=== PATIENT | male | born 1970 | race African-American/Black ===

== ENCOUNTER 2020-10-25 05:50 | Inpatient (IN) ==
[2020-10-21 13:01] LABS: Basophils % 0.2 % (0.0-0.8); Eosinophils % 0.4 % (0.00-10.9); Hematocrit 26.6 VOL% (42.0-52.0); Hemoglobin 7.8 GM/DL (14.0-18.0); Immature Granulocytes % 0.5 %; Immature Granulocytes Absolute 0.03 #; Lymphocytes # 1.3 10*3/uL (1.4-4.0); Lymphocytes % 22.5 % (21.2-54.2); Mean Corpuscular HGB Conc 29.3 GM/DL (32-36); Mean Corpuscular Volume 74.9 FL (87-102); Mean Platelet Volume 10.4 FL (9.6-12.0); Monocytes % 9.8 % (1.7-12.7); Neutrophils % 66.6 % (38.7-73.9); Platelet Count 358 T/CUMM (130-400); Red Blood Count 3.55 MC/CUMM (3.8-5.5); Red Cell Distribution Width 19.6 % (9.3-17.3); White Blood Count 5.6 T/CUMM (4-12)
[2020-10-21 13:18] LABS: Calcium 9.1 MG/DL (8.5-10.1); Osmolality,Calculated 270.8 MOS/KG (273-304); Potassium 3.2 MMOL/L (3.5-5.1)
[2020-10-25] MEDS ORDERED: ALVIMOPAN 12 MG CAPSULE PO ONE (06:00)
[2020-10-25] MEDS ORDERED: ERTAPENEM 1,000 MG in SODIUM CHLORIDE 0.9% 100 ML IV ONE (06:00)
[2020-10-25] MEDS ORDERED: LIDOCAINE 2% 5 ML VIAL ONE (06:10)
[2020-10-25] MEDS ORDERED: ROCURONIUM 50 MG/5 ML VIAL IV ONE ×2 (06:10→09:27)
[2020-10-25] MEDS ORDERED: propofoL 200 MG/20 ML VIAL IV ONE ×2 (06:10→10:31)
[2020-10-25] MEDS ORDERED: SUCCINYLCHOLINE 200 MG/10 ML VIAL ONE (06:10)
[2020-10-25] MEDS ORDERED: MIDAZOLAM 2 MG/2 ML VIAL ONE ×2 (06:11→07:41)
[2020-10-25] MEDS ORDERED: fentaNYL 100 MCG/2 ML VIAL ONE ×2 (06:11→08:10)
[2020-10-25] MEDS ORDERED: ROPIVACAINE 0.5% 30 ML VIAL ONE (06:17)
[2020-10-25] MEDS ORDERED: LIDOCAINE 1% 5 ML VIAL ONE (06:18)
[2020-10-25] MEDS ORDERED: LACTATED RINGERS 1,000 ML IV SCH ×2 (06:30→07:00)
[2020-10-25] MEDS ORDERED: TISSUE ADHESIVE 1 EACH APPLICATOR TOP ONE (06:48)
[2020-10-25] MEDS ORDERED: INDOCYANINE GREEN 25 MG VIAL IV ONE (06:48)
[2020-10-25 06:54] LABS: Hematocrit 27.7 VOL% (42.0-52.0); Hemoglobin 8.3 GM/DL (14.0-18.0)
[2020-10-25] MEDS ORDERED: PHENYLEPHRINE 1 MG/10 ML SYRINGE IV ONE (07:45)
[2020-10-25] MEDS ORDERED: SEVOFLURANE 1 UNIT/15 MINUTE INH ONE ×12 (08:10→10:17)
[2020-10-25] MEDS ORDERED: LACTATED RINGERS 1,000 ML IV ONE ×2 (08:10→08:37)
[2020-10-25] MEDS ORDERED: KETOROLAC 30 MG/1 ML VIAL ONE (08:22)
[2020-10-25] MEDS ORDERED: SUGAMMADEX 200 MG/2 ML VIAL IV ONE (10:07)
[2020-10-25 11:24] LABS: Amorphous Crystals,Urine Moderate /HPF (Few); Bilirubin,Urine Negative (Negative); Blood, Urine Negative (Negative); Glucose,Urine (UA) Negative (Negative); Ketones,Urine Negative (Negative); Mucus,Urine Many /LPF (Occasional); Nitrite,Urine Negative (Negative); Protein,Urine 30 MG/DL; Urine Appearance CLOUDY (Clear); Urine Color Yellow (Yellow); Urine Specific Gravity 1.026 (1.001-1.035); Urine Urobilinogen < 2.0 EU/DL (0.2-1.0)
[2020-10-25] MEDS ORDERED: ONDANSETRON 4 MG/2 ML VIAL IV PRN ×2 (11:32→13:00)
[2020-10-25] MEDS ORDERED: HYDROmorphone 2 MG/1 ML VIAL ONE (11:35)
[2020-10-25] MEDS: HYDROmorphone 2 MG/1 ML VIAL IV PRN ×2 (11:35→11:40)
[2020-10-25] MEDS ORDERED: HYDROmorphone 2 MG/1 ML VIAL IV PRN (12:37)
[2020-10-25 13:17] LABS: Basophils % 0.1 % (0.0-0.8); Hematocrit 26.9 VOL% (42.0-52.0); Immature Granulocytes % 0.4 %; Immature Granulocytes Absolute 0.03 #; Lymphocytes # 0.7 10*3/uL (1.4-4.0); Lymphocytes % 9.8 % (21.2-54.2); Mean Corpuscular HGB Conc 29.7 GM/DL (32-36); Mean Corpuscular Volume 75.8 FL (87-102); Mean Platelet Volume 10.1 FL (9.6-12.0); Monocytes % 2.3 % (1.7-12.7); Neutrophils % 87.4 % (38.7-73.9); Platelet Count 290 T/CUMM (130-400); Red Blood Count 3.55 MC/CUMM (3.8-5.5); Red Cell Distribution Width 21.3 % (9.3-17.3); White Blood Count 7.3 T/CUMM (4-12)
[2020-10-25] MEDS: KETOROLAC 30 MG/1 ML VIAL IV SCH ×2 (13:30→18:09)
[2020-10-25 13:35] LABS: Calcium 8.5 MG/DL (8.5-10.1); Osmolality,Calculated 273.1 MOS/KG (273-304); Potassium 3.6 MMOL/L (3.5-5.1)
[2020-10-25] MEDS: LACTATED RINGERS 1,000 ML IV SCH ×2 (15:22→23:30)
[2020-10-25] MEDS: FERROUS SULFATE ER 140 MG TABLET PO SCH (18:01)
[2020-10-25] MEDS: ALVIMOPAN 12 MG CAPSULE PO SCH (21:23)
[2020-10-26] MEDS: KETOROLAC 30 MG/1 ML VIAL IV SCH ×2 (01:25→06:04)
[2020-10-26] MEDS ORDERED: ENOXAPARIN 40 MG/0.4 ML SYRINGE SUBCUT SCH (05:00)
[2020-10-26 06:14] LABS: Basophils % 0.1 % (0.0-0.8); Eosinophils % 0.1 % (0.00-10.9); Hemoglobin 7.4 GM/DL (14.0-18.0); Immature Granulocytes % 0.5 %; Immature Granulocytes Absolute 0.04 #; Lymphocytes # 1.1 10*3/uL (1.4-4.0); Lymphocytes % 13.9 % (21.2-54.2); Mean Corpuscular HGB Conc 29.6 GM/DL (32-36); Monocytes % 6.8 % (1.7-12.7); Neutrophils % 78.6 % (38.7-73.9); Platelet Count 282 T/CUMM (130-400); Red Blood Count 3.29 MC/CUMM (3.8-5.5); Red Cell Distribution Width 21.1 % (9.3-17.3); White Blood Count 7.8 T/CUMM (4-12)
[2020-10-26] MEDS: ALVIMOPAN 12 MG CAPSULE PO SCH (08:32)
[2020-10-26] MEDS: FERROUS SULFATE ER 140 MG TABLET PO SCH (08:32)
[2020-10-26] MEDS ORDERED: ASCORBIC ACID 500 MG TABLET PO SCH (09:00)
[2020-10-26] MEDS: LACTATED RINGERS 1,000 ML IV SCH (09:37)
[2020-10-26 10:31] LABS: Calcium 8.3 MG/DL (8.5-10.1); Osmolality,Calculated 260.7 MOS/KG (273-304); Potassium 3.5 MMOL/L (3.5-5.1)
[2020-10-26 11:42] VITALS: BP 113/73
== END 2020-10-26 12:45 | disposition home or self-care (01) | DRG 331 ==
LOC: N.OR 05:50 → N.SDSINP 05:54 → N.3E 10:48
PROVIDERS: ADMIT Surgery; ATTEND Surgery